=== PATIENT | male | born 2000 | race African-American/Black ===

== ENCOUNTER 2025-05-04 08:24 | Emergency (ER) | payer MEDICAID ==
[~2025-05-04] VITALS: Ht 172.7 cm; Wt 68.0 kg
[2025-05-04 08:31] VITALS: TEMP 37.1; O2SAT 100
[2025-05-04] MEDS ORDERED: ONDA-239 PO (09:10)
[2025-05-04] MEDS ORDERED: IBUP-2030 MT (09:10)
[2025-05-04] MEDS: IBUPROFEN 800MG TABLET PO ONE (09:15)
[2025-05-04] MEDS: ONDANSETRON 4MG ODT PO ONE (09:15)
[2025-05-04 09:22] VITALS: BP 124/77; PULSE 70; RESP 16; O2SAT 100
== END 2025-05-04 09:23 | disposition home or self-care (01) ==
LOC: ER 08:24
DX: J06.9 Acute upper respiratory infection, unspecified (principal); B97.89 Other viral agents as the cause of diseases classified elsewhere
CPT/HCPCS: 99283; Q0162